=== PATIENT | male | born 1960 | race Caucasian/White ===

== ENCOUNTER 2017-10-02 19:41 | Inpatient (IN) | payer MEDICARE, MEDICAID ==
[2017-10-02] MEDS ORDERED: Metoprolol tartrate 1 mg/ml 5mL Amp IV STA ×2 (20:00→20:56)
[2017-10-02] MEDS ORDERED: Aspirin 81mg Chewable Tab PO STA (20:01)
[2017-10-02] MEDS ORDERED: Metoprolol tartrate 1 mg/ml 5mL Amp IV ONE ×2 (20:02→20:57)
[2017-10-02] MEDS ORDERED: NITROGLYCERIN OINT 2% 1 INCH PACKET TP STA (20:03)
[2017-10-02] MEDS ORDERED: NITROGLYCERIN OINT 2% 1 INCH PACKET TP ONE (20:05)
[2017-10-02] MEDS ORDERED: Heparin Sodium 1,000 Units/mL Vial IVP ONE (20:05)
[2017-10-02] MEDS ORDERED: Aspirin 81mg Chewable Tab ONE (20:06)
[2017-10-02 20:38] LABS: % BASOPHILS 0.9 % (0.0-2.0); % MONOCYTES 7.6 % (2.0-10.0); % NEUTROPHILS 78.5 % (40.0-80.0); HEMATOCRIT 37.4 % (41.0-60); HEMOGLOBIN 12.3 gm/dL (12-16); MEAN CELL VOLUME 89.2 fl (80-99); MEAN CORPUSCULAR HEMOGLOBIN 29.3 pg (26.0-30.0); MEAN CORPUSCULAR HGB CONC 32.8 pg (28.0-36.0); MEAN PLATELET VOLUME 7.5 fl; NEUTROPHILE ABSOLUTE 5.2 Th/cmm (1.8-8.0); RED BLOOD COUNT 4.19 Mil/cmm (4.30-5.70); RED CELL DISTRIBUTION WIDTH 18.8 % (11.5-20.0)
[2017-10-02] MEDS ORDERED: Potassium Chloride 20 mEq ER Tab PO ONE ×2 (20:39→20:59)
[2017-10-02 20:41] LABS: WHITE BLOOD COUNT 6.7 Th/cmm (4.8-10.8)
[2017-10-02 20:42] LABS: PLATELET COUNT 118 Th/cmm (150-400)
[2017-10-02 20:52] LABS: ALB/GLOB RATIO 1.7 (1.0-1.8); ALKALINE PHOSPHATASE 155 U/L (34-104); ANION GAP 11.2 (7.0-16.0); BILIRUBIN,TOTAL 1.1 mg/dL (0.3-1.0); BUN - UREA NITROGEN 13 mg/dL (7-25); BUN/CREATININE RATIO 11.8; CALCIUM SERUM 9.3 mg/dL (8.6-10.3); CARBON DIOXIDE 22.1 mEq/L (21.0-31.0); CHLORIDE 104 mEq/L (98-107); CREATININE - SERUM 1.1 mg/dL (0.7-1.3); GLUCOSE 87 mg/dL (70-105); POTASSIUM SERUM 3.3 mEq/L (3.5-5.1); SGOT 26 U/L (13-39); SGPT/ALT 20 U/L (7-52); SODIUM SERUM 134 mEq/L (136-145)
[2017-10-02 20:53] LABS: CHOLESTEROL 122 mg/dL (<200); TRIGLYCERIDES 55 mg/dL (<150)
[2017-10-02 20:58] LABS: INR 1.11 (0.5-1.4); PROTHROMBIN TIME (TEST) 11.6 SECONDS (9.5-11.5)
[2017-10-02] MEDS ORDERED: Mag Sulfate 2gm/50mL Premix 2 GM/50 ML BAG IV ONE ×2 (21:38→22:08)
--- NOTE | 2017-10-03 00:08 | ER Physician Documentation ---
DATE OF SERVICE: 10/02/2017 History and physical examination and ER report and treatment. The patient is in bed #4. CHIEF COMPLAINT: Chest pain. HISTORY OF PRESENT ILLNESS: The patient says he was apparently or lately has been getting frequent episodes of chest discomfort in the form of angina pectoris, takes nitroglycerin with relief. Today for the past an hour or so, he is having chest pain. He has tried 3 nitroglycerin that did not help him, so he came to the Emergency Room. He is a known diagnosed case of hypertension, coronary artery disease. He has triple vessel myocardial revascularization surgery at [facility], where he had an ICD device placement done. He says his ejection fraction is around 40%, but he does not know exactly and at the same time he had a laser removal of one of the lead from the heart. The patient came here. The patient has been given one more nitroglycerin. Lab workup has been ordered; troponin, PT, PTT, CMP, BNP, and CRP has been ordered. EKG has been done. The first EKG shows some PVCs paced rhythms, left anterior fascicular block because of paced rhythm and poor R-wave progression across the anterior leads. One cannot rule out old anterior septal myocardial infarction. Some PVCs were seen. The patient came over here, he was given nitroglycerin. He has been ordered to give IV morphine 4 mg and he has been given mg of IV metoprolol to be given, but there are no lines here. I told the nurse that I could insert a central line in the patient, they said they would try to put the peripheral line in a few minutes and give the patient his medications and they are trying to give it; otherwise, I will insert a central line. The patient himself is not very cooperative in getting a central line. He says central line gets infected, it is difficult, there is scarring, and this and that and everything else that he is complaining. The patient says that he comes every weekend to see his uncle and today he was seeing his uncle and he started having chest pain. He is taking the following medications. Because of the increased angina pectoris becoming unstable angina, his medications were increased. He is taking Norvasc 5 mg a day, he takes metoprolol 50 mg a day. He takes Isordil 60 mg twice a day, Lipitor 40 mg once a day, Lasix 40 mg once a day, and potassium chloride 20 mEq once a day. The patient never had any stent inserted. He said he had 10 times pacemaker change in his right side of the chest. I do not know whether this is true. 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 The patient has no history of diabetes mellitus and history of hypercholesterolemia is present, we will get the patient's lipid profile done tomorrow morning to make sure and 80 mg of Lipitor has been given to the patient. PAST MEDICAL HISTORY: The patient's past medical history is positive for coronary artery disease, hypercholesterolemia, ICD device, 32 years of service in the [employer]. He had some shrapnel wound in the left shoulder. He has no other significant disease. PERSONAL HISTORY: He was . He is . His . He has 1 child, one son. ALLERGIES: Reglan, to atropine and to Compazine. Reglan and Compazine gives rise to dystonia and atropine gives him some bronchospasm. Past history, otherwise is denied and negative except for surgical scar in the right upper quadrant of gallbladder removal. PERSONAL HISTORY: As I mentioned earlier. REVIEW OF SYSTEMS: EYES: No history of double vision, blurring blindness. CENTRAL NERVOUS SYSTEM: No history of TIA, stroke, encephalitis, meningitis. PULMONARY: No history of pneumonia, TB, pulmonary embolism, COPD, emphysema, bronchitis. The patient denies smoking or any other habits. GASTROINTESTINAL ROMERO: No history of diarrhea or constipation. No history of upper or lower GI bleeding. ENDOCRINE: No history of diabetes mellitus, hypo or hyperthyroidism. BONES AND JOINTS: Has shrapnel wound in the left shoulder. He has 32 years of service in the [employer]. He said he has had 3 tours to [place] and 2 tours to [place]. PHYSICAL EXAMINATION: GENERAL: The patient appears to be awake, alert, oriented, not in any acute cardiorespiratory distress. On physical exam, on general examination, otherwise is the patient has 2+ edema in the lower extremities, no DVT, no cyanosis, no petechia, no ecchymosis. No meningeal signs. VITAL SIGNS: His pain when he came was a 10/10, but now it is about 5/10, heart rate is 78 beats per minute, blood pressure 188/95. The last blood pressure just taken was 140/73 or so, 5 mg of Lopressor has been given to the patient as per my order because of the patient still having pain of about 7-8 or 5 in this range, it is going on. He said he had come here to this hospital about 2 years ago and he was sent home and after that he had an PR. CHEST: Reveals trachea to be central. The chest is clear. Decent air entry in both lungs without any rales, rhonchi, or bronchial breathing. ABDOMEN: Soft, benign and negative. Liver, spleen not enlarged. Surgical scar of open cholecystectomy has been done. No free fluid in the abdominal cavity. HEART: Reveal normal heart sounds. No fourth heart sound. Two midline surgical scar of previous surgery, which was done 1 year ago at [facility] in [place], where ICD device was also placed and the EKG was done. The first EKG shows a paced rhythm with ventricular bigeminy, with a couplet pattern and poor R-wave progression, old anterior wall myocardial infarction cannot be ruled out. The second EKG showing 100% EKG captured rhythm and hence underlying heart attack, etc. could not be ruled out. We have collected blood and started the lines. CENTRAL NERVOUS SYSTEM: Normal. CLINICAL IMPRESSION: The patient presented with acute coronary syndrome. Because of her ICD device and permanent paced rhythm one cannot say whether there is ST elevation PR or whether it is acute coronary syndrome with non-STEMI. We have given aspirin. We have given Plavix. We have given metoprolol. Morphine has been ordered. Nitro-Bid paste has been ordered. Metoprolol IV has been given, sublingual nitroglycerin has been given. Two more baby aspirin has been given to the patient. The nurses worked very hard and the blood has been drawn. EKG was done. Chest x-ray has been ordered. If the pain does not go away, we will start the patient on nitro drip if needed; otherwise, we will manage the patient on calcium channel malgorzata and beta-malgorzata and losartan and Lasix and potassium supplement will be given to the patient. FINAL DIAGNOSES: In conclusion, the patient's final diagnoses: 1. Acute coronary syndrome. The exact division into non-ST elevation myocardial infarction versus ST elevation myocardial infarction versus unstable angina could not be determined. At the present moment it is unstable angina to start with. Once we get the troponin, we can say that is non-ST elevation myocardial infarction. The patient's pain has dropped down to 5. 2. Hypertension. 3. History of coronary artery bypass grafting done 1 year ago. At the same time ICD device has been inserted, at the same time an embedded lead has been removed with a laser at [facility]. I know [facility], Satish Carloskatrina is one of the chief over there. I know him personally and I have also worked with him for 1 week training over there for my cardiac and I have heard him in numerous conferences, etc. The patient also had some surgery done, name of the hospital where he had the first permanent pacemaker. 4. Other diagnoses include hyperlipidemia. 5. Shrapnel wound in the left shoulder. 6. The patient is now retired and disabled secondary to heart condition. One cannot say whether the patient has this problem, whether he is malingering or not. We have to give the benefit of the doubt to his heart condition, so we are doing everything possible for the patient and all the nurses are working very hard in trying to take care of him as fast as possible for him and he does not want a central line and thank God the nurses were able to get the peripheral line and drips and IVs etc., has been started. Blood has been drawn and we might have to admit the patient and the patient was explained about all the risks, complications, alternatives about his current condition and anything can happen. We do not have any porcelain enamel laborer in this hospital was explained to the patient, but at the present moment, we do not have any lab workup to be done. The pain has come down. The blood pressure has come down. The medication has been given and we hope that the patient should get better. Once we have more data available, I will be happy to dictate it out. Thanks again. I thank all my colleagues, nurses', very good helping hands for this patient. JOB# [id number]
--- NOTE | 2017-10-03 07:44 | Diagnostic Imaging Report ---
Portable chest x-ray HISTORY: Shortness of breath The heart is enlarged. No definite acute focal pulmonary parenchymal processes are seen. Cardiac electrode lead wires project over the right atrium and right ventricle. Surgical suture material noted over the heart. Clips project over the left upper chest. IMPRESSION: 1. No acute focal pulmonary processes 2. Surgical changes associated cardiac electrode lead wires.
[2017-10-03 10:10] LABS: HEMATOCRIT 35.2 % (41.0-60); HEMOGLOBIN 11.6 gm/dL (12-16); MEAN CELL VOLUME 89.5 fl (80-99); MEAN CORPUSCULAR HEMOGLOBIN 29.6 pg (26.0-30.0); MEAN CORPUSCULAR HGB CONC 33.1 pg (28.0-36.0); MEAN PLATELET VOLUME 7.4 fl; PLATELET COUNT 96 Th/cmm (150-400); RED BLOOD COUNT 3.93 Mil/cmm (4.30-5.70); RED CELL DISTRIBUTION WIDTH 18.9 % (11.5-20.0)
[2017-10-03 10:27] LABS: ALB/GLOB RATIO 1.5 (1.0-1.8); ALKALINE PHOSPHATASE 135 U/L (34-104); ANION GAP 7.3 (7.0-16.0); BILIRUBIN,TOTAL 0.9 mg/dL (0.3-1.0); BUN - UREA NITROGEN 12 mg/dL (7-25); CALCIUM SERUM 8.5 mg/dL (8.6-10.3); CARBON DIOXIDE 22.4 mEq/L (21.0-31.0); CHLORIDE 109 mEq/L (98-107); CHOLESTEROL 100 mg/dL (<200); CREATININE - SERUM 0.8 mg/dL (0.7-1.3); POTASSIUM SERUM 3.7 mEq/L (3.5-5.1); SGOT 21 U/L (13-39); SGPT/ALT 18 U/L (7-52); SODIUM SERUM 135 mEq/L (136-145); TRIGLYCERIDES 47 mg/dL (<150)
[2017-10-03 10:28] LABS: WHITE BLOOD COUNT 3.6 Th/cmm (4.8-10.8)
[2017-10-03] MEDS: Potassium Chloride 20 mEq ER Tab PO SCH (10:31)
--- NOTE | 2017-10-03 10:37 | History & Physical ---
ADMIT DATE: 10/03/2017 CHIEF COMPLAINT: Chest pain, intermittent for last 1 week, got worse last night. HISTORY OF PRESENT ILLNESS: This is a 57-year-old male who lives in [place], visits his uncle every weekend, has significant medical history, which include cardiomyopathy, required AICD and pacemaker and also has history of coronary artery disease status post bypass graft. According to the patient, he had multiple times AICD was replaced. He is currently disabled from his medical illness. He states that he was visiting his uncle at local assisted living facility where he was experiencing substernal chest pain with radiation to the left shoulder associated with diaphoresis. The patient did have some dizziness associated with it. The patient was sent to Emergency Room by 911. The patient was evaluated and subsequently admitted to the hospital for further treatment. The patient does admit to have exertional shortness of breath with paroxysmal nocturnal dyspnea. He denies any fever, chills, cough, or history of any palpitation. The patient denies any headache. Denies any blurred vision or double vision. Does have some slow speech, but denies any abdominal pain, nausea, vomiting, hematemesis, hematuria, hematochezia, or melena. No seizure or syncopal episode. The patient states he takes his medications religiously. PAST MEDICAL HISTORY: Remarkable for: 1. Hypertension. 2. Hyperlipidemia. 3. Viral cardiomyopathy. 4. Coronary artery disease status post bypass graft. 5. Degenerative joint disease. 6. History of mechanical fall leading to back injury, making him weak on his lower extremity. 7. Status post AICD and pacemaker placement. MEDICATIONS AT HOME: Reviewed and reconciled. ALLERGIES: The patient is allergic to Reglan, atropine, and Compazine. SOCIAL HISTORY: He lives in [place] by himself. The patient has no smoking cigarette, alcohol, or drug use. The patient is a retired [employer]. FAMILY MEDICAL HISTORY: Remarkable for hypertension, cancer, and coronary artery disease. REVIEW OF SYSTEMS: As I mentioned in history of present illness. PHYSICAL EXAMINATION: GENERAL: A 57-year-old, alert, awake, and lying in the bed without any acute distress. VITAL SIGNS: Temperature 98.2, pulse 71, respiratory rate 18, and blood pressure 124/73. HEENT: Normocephalic and atraumatic. Extraocular muscles are intact. Tongue was pink and coated. Absent upper and lower dentition noted. No facial asymmetry. NECK: Supple. No JVD. No hepatojugular reflex, thyromegaly, or carotid bruit. HEART: Both heart sounds are regular with positive S3. CHEST AND LUNGS: Equal in expansion with palpable AICD on the right subclavian area noted. No wheezing and no crackles. ABDOMEN: Soft. No guarding and no rigidity. Liver and spleen palpable. No palpable mass. EXTREMITIES: No edema and no cyanosis. NEUROLOGIC: Remarkable for bilateral lower extremity weakness, more on the left than the right with positive SLR with hyperreflexia of the left lower extremity noted, which include knee and ankle reflexes. Babinskis in both toes are going down. AVAILABLE DIAGNOSTIC DATA: EKG, no ST-T changes representing acute ischemia. White count of 6.7, hemoglobin of 12.3, and platelet count of 118. BUN and creatinine is 13 and 1.1. Magnesium 1.7. Bilirubin 1.1 and alkaline phosphatase 155. BNP was 148. Chest x-ray was unremarkable for any infiltrate or congestion, but remarkable for surgical changes noted with AICD. CLINICAL IMPRESSION: 1. Chest pain in the presence of coronary artery disease with bypass graft, significant cardiac history. Etiology of chest pain is ruled out for acute coronary syndrome. 2. Coronary artery disease status post bypass graft. 3. Status post automatic implantable cardioverter defibrillator placement for cardiomyopathy. 4. Hypertension. 5. Hyperlipidemia. 6. Lower extremity weakness. 7. Degenerative joint disease. 8. Slow speech, needs further neurological evaluation that can be done as an outpatient. PLAN: Admit this patient to telemetry unit. Provide oxygen, aspirin, nitrate, beta malgorzata, three sets of cardiac enzymes, EKG, and Cardiology consultation. Appropriate home medicine reconciliation. A 2D echocardiogram will be done as well. Follow lab. Follow consult recommendations. Symptoms management along with general nursing care. Care plan reviewed and discussed with patient in length. JOB# [id number]
[2017-10-03 10:49] LABS: GLUCOSE 126 mg/dL (70-105)
[2017-10-03 11:25] LABS: EOSINOPHIL 3 % (0-5); NEUTROPHILS 77 % (40-80); TOTAL CELLS COUNTED 100
[2017-10-03 11:26] LABS: PLATELET ESTIMATE SLIGHT DECREASED (NORMAL)
[2017-10-03] MEDS ORDERED: Hydrocodone/APAP 5mg/325mg Tab PO PRN (15:42)
[2017-10-04 07:09] LABS: HEP B CORE IGM Negative (Negative)
[2017-10-04] MEDS: Potassium Chloride 20 mEq ER Tab PO SCH (08:35)
[2017-10-04] MEDS ORDERED: Aspirin 81mg Chewable Tab PO SCH (09:00)
[2017-10-04] MEDS ORDERED: Atorvastatin Calcium 10 MG TAB PO SCH (09:00)
--- NOTE | 2017-10-04 10:51 | Consultation ---
DATE OF CONSULTATION: 10/03/2017 HISTORY OF PRESENT ILLNESS: This 57 years old male patient who is visiting at which time the patient developed pain in the shoulder radiating to the arm with dizziness. Following this, the patient came to the Emergency Room. PAST MEDICAL HISTORY: Congestive heart failure; systolic dysfunction; cardiomyopathy, ischemic; hypertension; hyperlipidemia; and AICD placement. The patient had a mechanical fall with back injury. FAMILY HISTORY: Unremarkable. SOCIAL HISTORY: No history of smoking or alcohol abuse. ALLERGIES: No known allergies. PHYSICAL EXAMINATION: VITAL SIGNS: Blood pressure 120/70, pulse 70, and respirations 20. HEAD: Normocephalic. No lumps or bumps. EYES: Pupils equal and reactive to light. Fundi show AV nicking, sclerae white, conjunctivae pink. NECK: Carotid 2+. Normal upstroke. JVD 10 cm above the sternal angle. Thyroid not palpable. Lymph nodes not palpable. CHEST: Shows increased AP diameter. No kyphosis or scoliosis. LUNGS: Bilateral bronchovesicular breath sounds. Occasional wheeze. Bilateral rales. HEART: PMI fifth intercostal space with lateral to midclavicular line. S1, S2, S3, S4. Systolic murmur, grade 2/6, lower left sternal border without radiation. ABDOMEN: Soft. Liver and spleen are not palpable. No organomegaly. Bowel sounds are active. NEUROLOGIC: Unremarkable. EXTREMITIES: Peripheral pulses 2+. No pedal edema. CLINICAL DIAGNOSES: Chest pain, rule out coronary artery disease; coronary artery bypass; old myocardial infarction; ischemic cardiomyopathy; congestive heart failure; systolic dysfunction; automatic implantable cardioverter defibrillator placement with pacemaker; hypertension; and hyperlipidemia. PLAN: We will get a BNP level, echocardiogram, and troponin level. Start the patient on Lovenox. JOB# [id number]
--- NOTE | 2017-10-04 20:05 | Discharge Summary ---
DATE OF DISCHARGE: 10/04/2017 PRINCIPAL DIAGNOSES: 1. Chest pain. 2. Coronary artery disease, status post bypass graft. 3. Hypertension. 4. Hyperlipidemia. 5. Viral cardiomyopathy. 6. Degenerative joint disease. 7. Status post AICD and pacemaker placement. 8. Degenerative joint disease. 9. Lower extremity weakness, workup to be done as an outpatient. BRIEF STATEMENT FOR THE REASON FOR ADMISSION: This 57-year-old male presented to Emergency Room for evaluation of chest pain. The patient was evaluated and subsequently admitted. Please refer to my dictated medical H and P for further information. HOSPITAL COURSE: The patient was admitted to telemetry unit. The patient was given oxygen, aspirin, nitrate, beta malgorzata, three sets of cardiac enzymes, EKG were obtained, which was negative for acute myocardial infarction. Cardiology consultation was also requested. Appropriate medication was reconciliated. A 2D echocardiogram was also done. The patient did not have any acute WI by the enzymes. Decision was made that the patient should be discharged home. The patient did have abnormal liver function tests, hepatitis panel was also checked which was unremarkable. The patient will have further workup to be done as an outpatient. So, decision is made that patient should see primary care physician at [facility]. The patient is discharged on same medication as patient is receiving. The patient has fully understood about the discharge instructions. JOB# [id number]
== END 2017-10-04 19:41 | disposition home or self-care (01) | DRG 303 ==
LOC: ER 19:41 → TELE 22:00
PROVIDERS: ADMIT Internal Medicine; ATTEND Internal Medicine
DX: I25.110 Atherosclerotic heart disease of native coronary artery with unstable angina pectoris (principal); I11.0 Hypertensive heart disease with heart failure; I50.22 Chronic systolic (congestive) heart failure; R07.9 Chest pain, unspecified; M19.90 Unspecified osteoarthritis, unspecified site; I49.3 Ventricular premature depolarization; I44.4 Left anterior fascicular block; E78.00 Pure hypercholesterolemia, unspecified; S41.002A Unspecified open wound of left shoulder, initial encounter; M62.81 Muscle weakness (generalized); I25.5 Ischemic cardiomyopathy; I25.2 Old myocardial infarction; B33.24 Viral cardiomyopathy; Z95.1 Presence of aortocoronary bypass graft; Z95.810 Presence of automatic (implantable) cardiac defibrillator; Z88.8 Allergy status to other drugs, medicaments and biological substances; Z82.49 Family history of ischemic heart disease and other diseases of the circulatory system
CPT/HCPCS: 36415-UA; 71010-TC; 80053-TC; 80061-TC; 80074-90; 83735-TC; 83880-TC; 84484-TC; 85007-TC; 85025-TC; 85027-TC; 85610-TC; 86141-TC; 90799; 96375; 96376; J1644; J1940; J2270; J3475; Z7610